=== PATIENT | female | born 1940 | race Two or more races ===

== ENCOUNTER 2021-06-02 16:39 | Emergency (ER) | payer MEDICARE, OTHER ==
[~2021-06-02] VITALS: Ht 157.5 cm; Wt 64.0 kg
[2021-06-02 16:53] VITALS: BP 157/97
--- NOTE | 2021-06-02 17:10 | NUR ---
SEEN AND EXAMINED BY .
--- NOTE | 2021-06-02 17:15 | NUR ---
WARM COMPRESS APPLIED TO THE LOWER BACK.
[2021-06-02] MEDS ORDERED: CYCLOBENZAPRINE 10 MG TABLET ONE (17:20)
[2021-06-02] MEDS ORDERED: KETOROLAC TROMETHAMINE INJ 30 MG/ML VIAL ONE (17:20)
[2021-06-02] MEDS ORDERED: KETOROLAC TROMETHAMINE INJ 30 MG/ML VIAL IM ONE (17:30)
[2021-06-02] MEDS ORDERED: CYCLOBENZAPRINE 10 MG TABLET PO ONE (17:30)
[2021-06-02] MEDS ORDERED: HYDROCODONE/APAP 10/325MG TABLET ONE (18:49)
[2021-06-02] MEDS ORDERED: HYDROCODONE/APAP 10/325MG TABLET PO ONE (19:00)
[2021-06-02] MEDS ORDERED: CYCL5TAB PO (19:58)
[2021-06-02] MEDS ORDERED: IBUP-1957 PO (19:58)
[2021-06-02] MEDS ORDERED: HYDR-3980 PO (19:58)
--- NOTE | 2021-06-02 20:16 | NUR ---
Patient discharged to home in stable condition. Written and verbal after care instructions given. Patient verbalizes understanding of instruction. Pt ambulated with steady gait. vss. Left with family member.
== END 2021-06-02 20:18 | disposition home or self-care (01) ==
LOC: ER 16:39
DX: M62.830 Muscle spasm of back (principal); M54.6 Pain in thoracic spine
CPT/HCPCS: 96372; 99283; J1885